=== PATIENT | male | born 1945 | race Caucasian/White ===

== ENCOUNTER 2024-10-17 13:23 | Emergency (ER) | payer MEDICARE ==
[~2024-10-17] VITALS: Ht 170.2 cm; Wt 103.4 kg
--- NOTE | 2024-10-17 13:38 | ERN ---
ED Note History of Present Illness Stated Complaint: TESTICULAR PAIN Chief Complaint: Testicular Injury/Pain Time Seen by MD: 13:26 Dictation: PATIENT IS A 79-YEAR-OLD MALE HERE WITH COMPLAINTS OF LEFT TESTICULAR PAIN WITH SWELLING FOR FOUR MONTHS. HE DENIES ANY NAUSEA VOMITING FEVER CHILLS. STATES HE HAS NO PRIMARY CARE DOCTOR IN ONLY GOES TO DOCTORS WHEN HE HAS A PROBLEM. CHANGE IN URINATION. DENIES BEING A DIABETIC Allergies: Coded Allergies: No Known Drug Allergies (Unverified Allergy, Unknown, 10/17/24) Past Medical History Past Medical History: No Pertinent History Surgical History: None RN Note Reviewed/Agreed w/PFSH: Yes Review of System Dictation CONSTITUTIONAL: NEGATIVE EXCEPT FOR HPI HEAD/FACE: NEGATIVE EXCEPT FOR HPI EENT: NEGATIVE EXCEPT FOR HPI RESPIRATORY: NEGATIVE EXCEPT FOR HPI GASTROINTESTINAL/ABDOMINAL: NEGATIVE EXCEPT FOR HPI GENITOURINARY: NEGATIVE EXCEPT FOR HPI LEFT TESTICULAR PAIN SWELLING FOR FOUR MONTHS. MUSCULOSKELETAL: NEGATIVE EXCEPT FOR HPI INTEGUMENTARY: NEGATIVE EXCEPT FOR HPI NEUROLOGICAL/PSYCH: NEGATIVE EXCEPT FOR HPI HEMATOLOGIC/LYMPHATIC: NEGATIVE EXCEPT FOR HPI ALL SYSTEMS NEGATIVE, EXCEPT NOTED ABOVE. 13 POINT REVIEW OF SYSTEMS ASSESSED AND ALL NEGATIVE EXCEPT FOR ABOVE. Initial Vital Sign VS Vital Signs Date Time Temp Pulse Resp B/P (MAP) Pulse Ox O2 Delivery O2 Flow Rate FiO2 10/17/24 13:26 98.2 64 18 174/102 97 Room Air 10/17/24 13:44 0 21 Physical Exam Dictation VITAL SIGNS REVIEWED GENERAL APPEARANCE: ALERT, ORIENTED X 3, ME ACUTE DISTRESS, WELL DEVELOPED, NOURISHED. HEAD AND FACE: NON-TRAUMATIC. EYES: PERRL, PINK CONJUNCTIVAS, EYELID NO TRAUMA, ANTERIOR CHAMBER WITH ARCUS SENILIS. EARS: PINNAS INTACT AND NO SIGNS OF TRAUMA OR ERYTHEMA EAR CANALS CLEAR AND NO DISCHARGE TM NO ERYTHEMA NOSE: NO DISCHARGE, NO BLEEDING. OROPHARYNX: MOUTH NORMAL, TONGUE PINK, PHARYNX CLEAR,NO ERYTHEMA, TONSILS NO EXUDATES, NO ABSCESSES NOTED, MUCOUS MEMBRANE MOIST NECK: SUPPLE, NON-TENDER, NO THYROMEGALY, NO MASSES, NO JVD, NO BRUITS BREAST:DEFERRED CHEST:NO TENDERNESS, NO CREPITUS, NO PARADOXICAL MOVEMENT, NO RETRACTIONS LUNGS:CLEAR, WELL-VENTILATED, SYMMETRIC, NO RALES, NO WHEEZING, NO RHONCHI, NO STRIDOR, GOOD BREATH SOUNDS BILATERALLY HEART: REGULAR RATE, REGULAR RHYTHM, NO MURMUR, NO GALLOPS VASCULAR: NO PERIPHERAL EDEMA, ABDOMEN: SOFT, POSITIVE BOWEL SOUNDS, NONDISTENDED, NO GUARDING, NONTENDER, NO REBOUND, NO MASSES NO HEPATOMEGALY, NO SPLENOMEGALY, NO ALANIZ'S SIGN, NO HERNIAS. RECTAL: DEFERRED GENITAL: PATIENT IS HOODED, BILATERAL TESTICLES ARE DESCENDED, MILD LEFT TESTICULAR TENDERNESS SWELLING. NO SIGN OF FLOR'S GANGRENE. SKIN IS FLAKING SCALY TO SCROTUM. PATIENT STATES THIS HAS BEEN GOING ON A LONG TIME POSITIVE CREMASTERIC REFLEX BILATERALLY NEUROLOGICAL: NORMAL SPEECH, MOTOR FUNCTION INTACT, SENSORY FUNCTION INTACT MUSCULOSKELETAL: NECK NONTENDER, FULL RANGE OF MOTION, BACK NONTENDER, FULL RANGE OF MOTION, EXTREMITIES: NONTENDER, FULL RANGE OF MOTION SKIN: COLOR PINK, DRY, NO TURGOR, NO RASH, NO LACERATIONS, NO ABRASIONS, NO CONTUSIONS. LYMPHATIC: DEFERRED Results (Laboratory/Radiology) Laboratory/Radiology Laboratory Tests Test 10/17/24 13:45 White Blood Count 6.3 K/uL (4.8-10.8) Red Blood Count 5.62 MIL/uL (4.50-6.20) Hemoglobin 16.3 g/dL (14.0-18.0) Hematocrit 47.1 % (42-54) Mean Corpuscular Volume 83.8 fL (79-99) Mean Corpuscular Hemoglobin 29.0 pg (27.0-33.0) Mean Corpuscular Hemoglobin Concent 34.6 g/dL (32.0-36.0) Red Cell Distribution Width 13.1 % (11.0-15.5) Platelet Count 215 K/uL (130-400) Mean Platelet Volume 10.2 fL (7.5-10.5) Immature Granulocyte % (Auto) 0.5 % (0-1) Neutrophils (%) (Auto) 69.0 % (40.0-77.0) Lymphocytes (%) (Auto) 15.1 % (21.0-51.0) L Monocytes (%) (Auto) 8.7 % (3.0-13.0) Eosinophils (%) (Auto) 5.7 % (0.0-8.0) Basophils (%) (Auto) 1.0 % (0.0-5.0) Neutrophils # (Auto) 4.3 K/uL (1.8-7.7) Lymphocytes # (Auto) 1.0 K/uL (1.0-4.8) Monocytes # (Auto) 0.6 K/uL (0.1-1.0) Eosinophils # (Auto) 0.36 K/uL (0.00-0.70) Basophils # (Auto) 0.06 K/uL (0.00-0.20) Absolute Immature Granulocyte (auto 0.03 K/uL (0-1) Nucleated Red Blood Cells 0.0 % (0.0-0.19) Sodium Level 140 mmol/L (136-145) Potassium Level 3.6 mmol/L (3.5-5.1) Chloride Level 105 mmol/L (101-111) Carbon Dioxide Level 29 mmol/L (21-32) Blood Urea Nitrogen 12 mg/dL (7-18) Creatinine 0.8 mg/dL (0.5-1.3) Glomerular Filtration Rate Calc 89 mL/min (>90) Random Glucose 109 mg/dL (70-105) H Total Calcium 9.0 mg/dL (8.5-10.1) ORDERING PHYSICIAN: JAUN HORAN NP PROCEDURE: SCROTUM - US SCROTUM & CONTENTS US SCROTUM & CONTENTS HISTORY: LT TESTICULAR PAIN ?FOR MONTHS?. TECHNIQUE: US SCROTUM & CONTENTS. B mode, color flow and spectral analysis was performed. FINDINGS: RIGHT TESTICLE: measures 3.9 cm. Vascular flow is seen. Moderate hydrocele is seen. The epididymis demonstrates echogenicity within normal limits. LEFT TESTICLE: measures 3.7 cm. Vascular flow is seen. Complex left hydrocele is noted. The epididymis demonstrates echogenicity within normal limits. IMPRESSION: Vascular flow was seen in both testicles at this time. Moderate bilateral hydrocele, mildly complex in the left Labs Reviewed?: Yes ED Course ED Course Orders Procedure Category Date Status Time Us Scrotum & Contents US 10/17/24 Resulted 13:35 Cbc With Differential LAB 10/17/24 Complete 13:35 Urinalysis Profile LAB 10/17/24 Logged 13:35 Basic Metabolic Panel LAB 10/17/24 Complete 13:35 Vital Signs Date Time Temp Pulse Resp B/P (MAP) Pulse Ox O2 Delivery O2 Flow Rate FiO2 10/17/24 14:59 58 16 149/70 95 Room Air* 0 21 10/17/24 13:44 97.7 69 14 167/77 96 Room Air* 0 21 10/17/24 13:26 98.2 64 18 174/102 97 Room Air Medical Decision Making MDM HE IS DISCHARGED WE CAN LET HIM MDM: DIFFERENTIAL DIAGNOSIS: TESTICULAR TORSION/HYDROCE ORCHITIS RATIONALE: TESTS CONSIDERED AND ORDERED SECONDARY TO SHARED DECISION MAKING INCLUDE: PREVIOUS OUTSIDE RECORDS REVIEWED: OLD ER VISITS. ULT REVIEWED RISK OF COMPLICATION AND/OR MORBIDITY OR MORTALITY OF PATIENT MANAGEMENT: NONE MEDICATIONS-PER MEDICATION RECONCILIATION NEED FOR HOSPITALIZATION: PATIENT DOES NOT MEET CRITERIA FOR HOSPITALIZATION. NO NEED FOR EMERGENCY MAJOR/MINOR SURGERY: NO NO THERE ARE NO SOCIAL CONCERNS WITH THIS PATIENT. PRESCRIPTION DRUG MANAGEMENT NONE PRESCRIPTIONS WILL INCLUDE SYMPTOMATIC CARE PATIENT'S PRIOR EXTERNAL MEDICAL RECORDS FROM OTHER ER VISITS WERE REVIEWED BY ME INDICATED. PRIOR TESTING AND RESULTS FROM PREVIOUS VISITS WERE REVIEWED. PRIOR TESTS WERE TAKEN INTO ACCOUNT WITH MEDICAL DECISION MAKING AND RESOURCE UTILIZATION, INDEPENDENT HISTORIAN/HISTORIANS WERE USED TO OBTAIN COMPLETE MEDICAL HISTORY. I INDEPENDENTLY INTERPRETED THE TEST THAT WERE PERFORMED, RESULTS WERE REVIEWED BY ME AND CONSIDERED FINDINGS ON RADIOLOGY IF ORDERED. MEDICAL MANAGEMENT AND EXAMINATION INTERPRETATION DISCUSSIONS WERE HAD BY ME WITH OTHER QUALIFIED HEALTHCARE PROFESSIONALS INDICAT DX & DISP Disposition: Discharge Departure Impression: Primary Impression: Bilateral hydrocele Condition: Stable Additional Instructions: FOLLOW-UP WITH PRIMARY CARE PROVIDER IN 1 TO 2 DAYS. TAKE MEDICATIONS DIRECTED HERE IN THE EMERGENCY ROOM. OKAY TO CONTINUE HOME MEDICATIONS UNLESS OTHERWISE DISCUSSED DURING YOUR VISIT IN THE EMERGENCY ROOM TODAY. RETURN TO YOUR NEAREST EMERGENCY ROOM IF SYMPTOMS WORSEN OR IF THERE IS NO IMPROVEMENT. CALL 911 IF YOU NEED IMMEDIATE ASSISTANCE. TAKE TYLENOL OR MOTRIN OVER-THE-CO UNTER NEEDED AND IF NO CONTRAINDICATIONS ARE PRESENT. INCREASE ORAL HYDRATION. A WOUND CULTURE OR URINE CULTURE WAS ORDERED HERE IN THE EMERGENCY ROOM DEPARTMENT PLEASE FOLLOW-UP WITH PRIMARY CARE PROVIDER AND ADVISE THEM TO GET REPEAT PORTS FROM OUR FACILITY. IF YOU HAD ANY ZACH WRAP/SPLINTS THAT WERE APPLIED HERE, PLEASE DO NOT REMOVE THEM UNTIL YOU SEE YOUR PRIMARY CARE OR SPECIALTY. SEE YOUR PRIMARY CARE DOCTOR ON FRIDAY OR FRIDAY FOR FOLLOW UP AND REFERRAL TO UROLOGIST. Referrals: SELF,REFERRAL (PCP) Time of Disposition: 15:20 I have reviewed the case, and I agree with, Diagnosis and Plan JAUN HORAN NP Oct 17, 2024 13:38
[2024-10-17 13:44] VITALS: TEMP 97.7
[2024-10-17 13:50] LABS: BASOPHILS # (AUTO) 0.06 K/uL (0.00-0.20); EOSINOPHILS # (AUTO) 0.36 K/uL (0.00-0.70); EOSINOPHILS % (AUTO) 5.7 % (0.0-8.0); HEMATOCRIT 47.1 % (42-54); IMMATURE GRANULOCYTE ABSOLUTE 0.03 K/uL (0-1); LYMPHOCYTES % (AUTO) 15.1 % (21.0-51.0); MEAN CORPUSCULAR HGB CONC 34.6 g/dL (32.0-36.0); MEAN CORPUSCULAR VOLUME 83.8 fL (79-99); MONOCYTES # (AUTO) 0.6 K/uL (0.1-1.0); MONOCYTES % (AUTO) 8.7 % (3.0-13.0); NEUTROPHILS # (AUTO) 4.3 K/uL (1.8-7.7); PLATELET COUNT (AUTO) 215 K/uL (130-400); RED BLOOD CELL COUNT(AUTO) 5.62 MIL/uL (4.50-6.20); RED CELL DISTRIBUTION WIDTH 13.1 % (11.0-15.5); WHITE BLOOD COUNT (AUTO) 6.3 K/uL (4.8-10.8)
[2024-10-17 14:04] LABS: CREATININE 0.8 mg/dL (0.5-1.3); POTASSIUM 3.6 mmol/L (3.5-5.1)
[2024-10-17 14:59] VITALS: BP 149/70; PULSE 58; RESP 16; O2SAT 95
--- NOTE | 2024-10-17 15:05 | HMCIMG ---
US SCROTUM & CONTENTS HISTORY: LT TESTICULAR PAIN ?FOR MONTHS?. TECHNIQUE: US SCROTUM & CONTENTS. B mode, color flow and spectral analysis was performed. FINDINGS: RIGHT TESTICLE: measures 3.9 cm. Vascular flow is seen. Moderate hydrocele is seen. The epididymis demonstrates echogenicity within normal limits. LEFT TESTICLE: measures 3.7 cm. Vascular flow is seen. Complex left hydrocele is noted. The epididymis demonstrates echogenicity within normal limits. IMPRESSION: Vascular flow was seen in both testicles at this time. Moderate bilateral hydrocele, mildly complex in the left
[2024-10-17 15:42] LABS: APPEARANCE,URINE CLEAR (CLEAR); BILIRUBIN,URINE NEGATIVE (NEGATIVE); COLOR,URINE LIGHT-YELLOW (YELLOW); GLUCOSE, URINE (UA) NEGATIVE (NEGATIVE); KETONES,URINE NEGATIVE (NEGATIVE); LEUKOCYTE ESTERASE ,URINE NEGATIVE Leu/uL (NEGATIVE); NITRATE,URINE NEGATIVE (NEGATIVE); OCCULT BLOOD,URINE NEGATIVE (NEGATIVE); PROTEIN,URINE NEGATIVE (NEGATIVE); UROBILINOGEN,URINE 0.2 mg/dL (0.2-1.0)
[2024-10-17 15:51] LABS: ADD UA MICROSCOPIC NO
== END 2024-10-17 15:30 | disposition home or self-care (01) ==
LOC: EDH 13:23
DX: N43.3 Hydrocele, unspecified (principal)
CPT/HCPCS: 36415; 76870; 80048; 81003; 85025; 99284

== ENCOUNTER 2025-03-22 10:46 | Emergency (ER) | payer MEDICARE ==
[~2025-03-22] VITALS: Ht 172.7 cm; Wt 96.6 kg
[2025-03-22 11:32] LABS: APPEARANCE,URINE CLEAR (CLEAR); BILIRUBIN,URINE NEGATIVE (NEGATIVE); COLOR,URINE COLORLESS (YELLOW); GLUCOSE, URINE (UA) NEGATIVE (NEGATIVE); KETONES,URINE NEGATIVE (NEGATIVE); LEUKOCYTE ESTERASE ,URINE NEGATIVE Leu/uL (NEGATIVE); NITRATE,URINE NEGATIVE (NEGATIVE); OCCULT BLOOD,URINE NEGATIVE (NEGATIVE); PROTEIN,URINE NEGATIVE (NEGATIVE); UROBILINOGEN,URINE 0.2 mg/dL (0.2-1.0)
[2025-03-22 11:37] LABS: ADD UA MICROSCOPIC NO
--- NOTE | 2025-03-22 11:41 | HMCIMG ---
US SCROTUM & CONTENTS HISTORY: Pain COMPARISON: Ultrasound from October 17, 2024 TECHNIQUE: Duplex scrotal ultrasound study was performed. FINDINGS: The right testes measures 4.2 x 2.9 x 3.5 cm. The left testes measures 3.9 x 3.1 x 2.7 cm. No evidence of intratesticular mass or abnormal calcification is seen. Normal flow is seen of both testes and right epididymis. Increased flow is seen in the left epididymis suggestive of epididymitis. There are large bilateral hydrocele. IMPRESSION: 1. Suspect left epididymitis. Bilateral large hydroceles.
[2025-03-22 11:42] LABS: BASOPHILS # (AUTO) 0.04 K/uL (0.00-0.20); BASOPHILS % (AUTO) 0.6 % (0.0-5.0); EOSINOPHILS # (AUTO) 0.51 K/uL (0.00-0.70); EOSINOPHILS % (AUTO) 8.2 % (0.0-8.0); HEMATOCRIT 48.8 % (42-54); IMMATURE GRANULOCYTE ABSOLUTE 0.02 K/uL (0-1); LYMPHOCYTES # (AUTO) 0.8 K/uL (1.0-4.8); LYMPHOCYTES % (AUTO) 12.1 % (21.0-51.0); MEAN CORPUSCULAR HGB CONC 33.4 g/dL (32.0-36.0); MEAN CORPUSCULAR VOLUME 86.7 fL (79-99); MONOCYTES # (AUTO) 0.5 K/uL (0.1-1.0); MONOCYTES % (AUTO) 7.2 % (3.0-13.0); NEUTROPHILS # (AUTO) 4.5 K/uL (1.8-7.7); NEUTROPHILS % (AUTO) 71.6 % (40.0-77.0); PLATELET COUNT (AUTO) 220 K/uL (130-400); RED BLOOD CELL COUNT(AUTO) 5.63 MIL/uL (4.50-6.20); RED CELL DISTRIBUTION WIDTH 13.4 % (11.0-15.5); WHITE BLOOD COUNT (AUTO) 6.2 K/uL (4.8-10.8)
[2025-03-22 11:48] LABS: CREATININE 0.7 mg/dL (0.5-1.3); POTASSIUM 3.5 mmol/L (3.5-5.1)
[2025-03-22] MEDS ORDERED: CEPH500B PO (12:28)
--- NOTE | 2025-03-22 12:29 | ERN ---
General Chief Complaint: Testicular Injury/Pain Stated Complaint: SWOLLEN SCROTUM, HTN Time Seen by MD: 10:48 Source: patient History of Present Illness Initial Comments Patient is a 79-year-old male coming in to be evaluated for testicular discomfort. Per patient this has been ongoing for about 3-4 days. He also states that he has been feeling generalized weakness no fever or chills. Allergies: Coded Allergies: No Known Drug Allergies (Unverified Allergy, Unknown, 10/17/24) Past Medical History Past Medical History: No Pertinent History Medical History Other: ALZHEIMER'S Past Surgical History: None ROS Dictation CONSTITUTIONAL: No chills, no fever, no weakness, no diaphoresis, no malaise. HEAD/FACE: No signs of trauma. EENT: No eye pain, no blurred vision, no tearing, no double vision, no ear pain, no ear discharge, no nose pain, no nasal congestion, no throat pain, no throat swelling, no mouth pain. RESPIRATORY: No cough, no orthopnea, no SOB, no stridor, no wheezing. CARDIOVASCULAR: No chest pain, no edema, no palpitations, no syncope. GASTROINTESTINAL/ABDOMINAL: No abdominal pain, no constipation, no diarrhea, no nausea, no vomiting. GENITOURINARY: No abnormal discharge, no dysuria, no frequent urination, no hematuria. complaints of pain in the genitals. MUSCULOSKELETAL: No back pain, no gout, no joint pain, no joint swelling, no muscle pain, no muscle stiffness, no neck pain. INTEGUMENTARY: No change in color, no change in hair/nails, no dryness, no lesion, no lumps, no rash. NEUROLOGICAL/PSYCH: No anxiety, not depressed, no emotional problem, no headache, no numbness, no pre-existing deficit, no history of seizures, no tremors, no weakness. HEMATOLOGIC/LYMPHATIC: Not anemic, no history of blood clots, no apparent bleeding, no bruising, glands not swollen. All Systems Negative, Except as Noted. Physical Exam Physical Exam Dictation VITAL SIGNS: Reviewed. GENERAL APPEARANCE: Alert, oriented x3, no acute distress, obese. HEAD AND FACE: Non-traumatic. EYES: PERRL, pink conjunctivas, eyelid no trauma, anterior chamber clear. EARS: Pinnas intact and no signs of trauma or erythema. Ear canals clear and no discharge. TMs no erythema. NOSE: No discharge, no bleeding. OROPHARYNX: Mouth normal, teeth no caries, tongue pink. Pharynx clear, no erythema. Tonsils no exudates, no abscesses noted. Mucous membrane moist. NECK: Supple, non-tender, no thyromegaly, no masses, no JVD, no bruits. BREAST: Deferred. CHEST: No tenderness, no crepitus, no paradoxical movement, no retractions. LUNGS: Clear, well-ventilated, symmetric, no rales, no wheezing, no rhonchi, no stridor, good breath sounds bilaterally. HEART: Regular rate, regular rhythm, no murmur, no gallops. VASCULAR: No peripheral edema. ABDOMEN: Soft, positive bowel sounds, nondistended, no guarding, nontender, no rebound, no masses no hepatomegaly, no splenomegaly, no Lopez's sign, no hernias. RECTAL: Deferred. GENITAL: Right testicular discomfort on palpation chaperoned by nurse. NEUROLOGICAL: Normal speech, gross motor function intact, gross sensory function intact. MUSCULOSKELETAL: Neck nontender, full range of motion, back nontender, full range of motion. EXTREMITIES: Nontender, full range of motion. SKIN: Color pink, dry, no turgor, no rash, no lacerations, no abrasions, no contusions. LYMPHATICS: Deferred. Results Laboratory and Microbiology Lab and Micro Result Laboratory Tests Test 03/22/25 11:14 03/22/25 11:24 Urine Color COLORLESS (YELLOW) Urine Appearance CLEAR (CLEAR) Urine pH 7.0 (5.0-8.0) Urine Specific [place] 1.000 (1.001-1.031) Urine Protein NEGATIVE mg/dL (NEGATIVE) Urine Glucose (UA) NEGATIVE mg/dL (NEGATIVE) Urine Ketones NEGATIVE mg/dL (NEGATIVE) Urine Occult Blood NEGATIVE (NEGATIVE) Urine Nitrate NEGATIVE (NEGATIVE) Urine Bilirubin NEGATIVE mg/dL (NEGATIVE) Urine Urobilinogen 0.2 mg/dL (0.2-1.0) Urine Leukocyte Esterase NEGATIVE Domonique/uL White Blood Count 6.2 K/uL (4.8-10.8) Red Blood Count 5.63 MIL/uL (4.50-6.20) Hemoglobin 16.3 g/dL (14.0-18.0) Hematocrit 48.8 % (42-54) Mean Corpuscular Volume 86.7 fL (79-99) Mean Corpuscular Hemoglobin 29.0 pg (27.0-33.0) Mean Corpuscular Hemoglobin Concent 33.4 g/dL (32.0-36.0) Red Cell Distribution Width 13.4 % (11.0-15.5) Platelet Count 220 K/uL (130-400) Mean Platelet Volume 10.8 fL (7.5-10.5) H Immature Granulocyte % (Auto) 0.3 % (0-1) Neutrophils (%) (Auto) 71.6 % (40.0-77.0) Lymphocytes (%) (Auto) 12.1 % (21.0-51.0) L Monocytes (%) (Auto) 7.2 % (3.0-13.0) Eosinophils (%) (Auto) 8.2 % (0.0-8.0) H Basophils (%) (Auto) 0.6 % (0.0-5.0) Neutrophils # (Auto) 4.5 K/uL (1.8-7.7) Lymphocytes # (Auto) 0.8 K/uL (1.0-4.8) L Monocytes # (Auto) 0.5 K/uL (0.1-1.0) Eosinophils # (Auto) 0.51 K/uL (0.00-0.70) Basophils # (Auto) 0.04 K/uL (0.00-0.20) Absolute Immature Granulocyte (auto 0.02 K/uL (0-1) Nucleated Red Blood Cells 0.0 % (0.0-0.19) Sodium Level 140 mmol/L (136-145) Potassium Level 3.5 mmol/L (3.5-5.1) Chloride Level 102 mmol/L (101-111) Carbon Dioxide Level 35 mmol/L (21-32) H Blood Urea Nitrogen 10 mg/dL (7-18) Creatinine 0.7 mg/dL (0.5-1.3) Glomerular Filtration Rate Calc 93 mL/min (>90) Random Glucose 97 mg/dL (70-105) Lactic Acid Level 1.7 mmol/L (0.8-2.5) Total Calcium 8.9 mg/dL (8.5-10.1) Total Creatine Kinase 93 U/L (21-232) Troponin I High Sensitivity 11 ng/L (4-75) Labs Reviewed?: Yes EKG/XRAY/US/CT/MRI Ultrasound Comment [facility] [address] [place] [address] IMAGING REPORT Signed PATIENT: JOY IRWIN MR#: [id number] : 1945 SEX: M AGE: 79 LOCATION: [facility] ORDER 1111 STATUS: REG ER REPORT#: [id number] SERVICE 1110 REASON: testicle ORDERING PHYSICIAN: MELLY FIELDS MD PROCEDURE: SCROTUM - US SCROTUM & CONTENTS US SCROTUM & CONTENTS HISTORY: Pain COMPARISON: Ultrasound from October 17, 2024 TECHNIQUE: Duplex scrotal ultrasound study was performed. FINDINGS: The right testes measures 4.2 x 2.9 x 3.5 cm. The left testes measures 3.9 x 3.1 x 2.7 cm. No evidence of intratesticular mass or abnormal calcification is seen. Normal flow is seen of both testes and right epididymis. Increased flow is seen in the left epididymis suggestive of epididymitis. There are large bilateral hydrocele. IMPRESSION: 1. Suspect left epididymitis. Bilateral large hydroceles. DICTATED BY: DOMINGUEZ OTTO MD DATE: 03/22/25 1138 ELECTRONICALLY SIGNED BY: DOMINGUEZ OTTO MD DATE: 03/22/25 1141 [facility] MDM: Differential diagnosis: Edematous, UTI, torsion of the testicle, Rationale: Tests considered and ordered secondary to shared decision making include: Previous outside records reviewed: Old ER visits. Risk of complication and/or morbidity or mortality of patient management: None Patient is a an 79-year-old male coming in complaining of testicular discomfort. Ultrasound disclose epididymitis and bilateral hydrocele. Patient will be discharged in stable condition with a diagnosis of hydrocele and epididymitis. Antibiotics we provided as well as anti-inflammatories. ED Course Orders Procedure Category Date Status Time Cbc With Differential LAB 03/22/25 Complete 10:57 Blood Cult ADRIENNE 03/22/25 In Process 10:57 Urinalysis Profile LAB 03/22/25 Complete 10:57 Culture Urine ADRIENNE 03/22/25 Logged 10:57 Creatine Kinase, Total LAB 03/22/25 Complete 10:57 Troponin I High LAB 03/22/25 Complete Sensitivity 10:57 Lactic Acid LAB 03/22/25 Complete 10:57 Basic Metabolic Panel LAB 03/22/25 Complete 10:57 Us Scrotum & Contents US 03/22/25 Resulted 11:10 Ns 1000ml Bolus PHA 03/22/25 Verified 12:30 Vital Signs Date Time Temp Pulse Resp B/P (MAP) Pulse Ox O2 Delivery O2 Flow Rate FiO2 03/22/25 11:28 98.1 65 16 190/90 98 Room Air* 0 21 03/22/25 10:48 97.5 68 18 192/96 96 Room Air 0 DX & DISP Disposition: Discharge Departure Impression: Primary Impression: Bilateral hydrocele Additional Impression: Epididymitis Condition: Stable Scripts Cephalexin Monohydrate (Keflex) 500 Mg Cap 1 CAP PO TID for 10 Days, #30 CAP 0 Refills Prov: MELLY FIELDS MD 03/22/25 Additional Instructions: FOLLOW-UP WITH PRIMARY CARE PROVIDER IN 1 TO 2 DAYS. TAKE MEDICATIONS DIRECTED HERE IN THE EMERGENCY ROOM. OKAY TO CONTINUE HOME MEDICATIONS UNLESS OTHERWISE DISCUSSED DURING YOUR VISIT IN THE EMERGENCY ROOM TODAY. RETURN TO YOUR NEAREST EMERGENCY ROOM IF SYMPTOMS WORSEN OR IF THERE IS NO IMPROVEMENT. CALL 911 IF YOU NEED IMMEDIATE ASSISTANCE. TAKE TYLENOL [id number] NEEDED AND IF NO CONTRAINDICATIONS ARE PRESENT. INCREASE ORAL HYDRATION. A WOUND CULTURE OR URINE CULTURE WAS ORDERED HERE IN THE EMERGENCY ROOM DEPARTMENT PLEASE FOLLOW-UP WITH PRIMARY CARE PROVIDER AND ADVISE THEM TO GET REPEAT PORTS FROM OUR FACILITY. IF YOU HAD ANY ZACH WRAP/SPLINTS THAT WERE APPLIED HERE, PLEASE DO NOT REMOVE THEM UNTIL YOU SEE YOUR PRIMARY CARE OR SPECIALTY. Referrals: Referrals: SELF,REFERRAL (PCP) CEDRIC COPE MD, LUIS A MD Time of Disposition: 12:28 MELLY FIELDS MD Mar 22, 2025 12:29
[2025-03-22] MEDS: 0.9%NACL 1000ML 1,000 ML IV ONE (12:33)
--- NOTE | 2025-03-22 12:38 | NUR ---
DC PEND COMPLETION OF FLUIDS ORDERED AT TIME OD DC
[2025-03-22 13:27] VITALS: BP 185/86; PULSE 65; RESP 16; TEMP 98.1; O2SAT 98
[2025-03-22] MEDS: NEOMY SULF/BACITRA/POLYMYXIN B 1 EACH PACKET TP ONE (13:29)
[2025-03-22] MEDS ORDERED: NEOMY SULF/BACITRAC ZN/POLY OINT 30GM TUBE TP ONE (13:30)
== END 2025-03-22 13:33 | disposition home or self-care (01) ==
LOC: EDH 10:46
DX: N43.3 Hydrocele, unspecified (principal); N45.1 Epididymitis; I10 Essential (primary) hypertension
CPT/HCPCS: 99284; 82550; 84484; 80048; 85025; 87040 ×2; 87086; 83605; 81003; 36415; 76870; J7030